=== PATIENT | female | born 1945 | race Caucasian/White ===

== ENCOUNTER → 2019-06-23 | Outpatient (CLI) | payer MEDICARE, MEDICAID ==
--- NOTE | 2019-06-23 17:10 | US ---
EXAM DESCRIPTION: 3D Diagnostic, Bilateral (accession [id number]), Breast,Right (accession [id number]): Ultrasound CLINICAL HISTORY: 74 yearsFemaleBREAST LUMP . Palpable mass upper outer quadrant middle third of right breast. Recently, mass no longer palpable.. No personal history of breast cancer. Remote family history of breast cancer. Menarche age 14. Childbirth. Postmenopausal 30+ years. No HRT. No history of right breast trauma or surgery. Lifetime risk of developing breast cancer (Tyrer-Cuzick model)(%): 3.9. COMPARISON: None. TECHNIQUE: Bilateral CC, MLO, and LM projection full-field images, digital tomosynthesis technique. Bilateral 2-D digital full-field images:. CC, MLO and LM projections. CAD not available. . Transcutaneous scanning of the left breast region of interest utilizing guevara-scale and Doppler modes. Scanning performed by the vaccine customer representative ; observation by Dr. Steen. FINDINGS: The breast parenchymal density pattern is: Scattered areas of fibroglandular density. No skin thickening or nipple retraction skin marker visualized on the upper outer quadrant of the middle third of the right breast approximately 6 cm from the nipple. No mammographic abnormality. Bilateral solitary microcalcifications. Large calcifications in the anterior and middle third of the left breast at the 12:00 position surrounded by minimal architectural distortion. No focal, stellate mass or density, focal asymmetry , and no suspicious microcalcifications bilaterally. Ultrasound: Scanning of the right breast at the 10:00 position with emphasis on the region of the breast abutting the nipple marker. Almost completely fatty replacement. No dominant solid mass. No distinct cyst. No parenchymal edema or large calcifications. No overlying skin changes. IMPRESSION: Benign exam. BIRAD CATEGORY: 2 BENIGN FINDINGS. RECOMMENDATIONS: FOLLOW UP: Routine digital bilateral mammographic screening, one year interval from May 2019. Written communication explaining the IMPRESSION and follow-up, will be mailed to the patient and referring health care provider. The FINDINGS and the FOLLOW-UP plan were reviewed in person with the patient after the examination. According to the [employer], yearly mammograms are recommended starting at age 40 and continuing as long as a woman is in good health. Any breast change noted on a breast self-exam should be reported promptly to the patient's healthcare provider. Breast MRI is recommended for women with an approximately 20-25% or greater lifetime risk of breast cancer, including women with a strong family history of breast or ovarian cancer and women who have been treated for Hodgkin's disease. A negative mammographic report should not delay tissue diagnosis in patients with significant clinical history or physical findings. Extremely dense breast tissue limits the sensitivity of digital mammography. Electronically signed by: Xu Steen MD 06/23/2019 5:09 PM CDT
== END ==
LOC: US 15:30
PROVIDERS: ATTEND Nurse Practitioner Family
DX: N63.11 Unspecified lump in the right breast, upper outer quadrant (principal)
CPT/HCPCS: 76641; 77066; G0279